=== PATIENT | female | born 1980 | race American Indian/Alaskan Native ===

== ENCOUNTER 2018-07-22 03:43 | Inpatient (IN) | payer BC, MEDICAID ==
[2018-07-22] MEDS ORDERED: PITOCin/NS 20 UNIT/1000ML DRIP 20,000 MILLIUNITS/1,000 ML BAG IV ONE (05:14)
[2018-07-22] MEDS ORDERED: LACTATED RINGERS 1,000 ML IV ONE (06:13)
--- NOTE | 2018-07-22 08:51 | History and Physical Report ---
History of Present Illness Date of examination: 07/22/18 Date of admission: 07/22/18 03:45 Chief complaint: SROM @ 1946 History of present illness: Pt is a 38yo BF EDC 08/07/18; EGA 37 5/7 weeks presents to L&D complaining of leaking fluid since last night followed by irregular contractions. She received care at [facility] since 12 weeks and co-managed by [facility] for uterine fibroids (16.3 x 17.7 x 15.85cm). records are available and GBS is Negative Past History Past Medical History: thyroid disease Past Surgical History: other (Thyroidectomy) [employer] SUR[employer]YOR History: fibroids Social history: no significant social history, - Obstetrical History Expected Date of Delivery: 08/07/18 Actual Gestation: 37 Week(s) 5 Day(s) Medications and Allergies Allergies Allergy/AdvReac Type Severity Reaction Status Date / Time cheese AdvReac Hives Verified 12/12/14 13:54 Home Medications Medication Instructions Recorded Confirmed Last Taken Type Melatonin/Pyridoxine [Melatonin 3 1 each PO HS 12/12/14 12/12/14 Unknown History mg Tablet] diphenhydrAMINE [Benadryl CAP] 25 mg PO QHS PRN 12/12/14 12/12/14 Unknown History Review of Systems All systems: negative - Vital Signs Vital signs: Vital Signs Pulse BP 110 H 135/75 07/22/18 03:59 07/22/18 03:59 Temp Pulse Resp BP Pulse Ox 97.6 F 98 H 20 115/75 98 07/22/18 05:00 07/22/18 07:55 07/22/18 05:00 07/22/18 07:55 07/22/18 05:00 - Physical Exam Breasts: Positive: deferred Abdomen: Positive: normal appearance, soft Genitourinary (Female): Positive: normal external genitalia Vagina: Positive: normal moisture Extremities: Positive: normal - Obstetrical FHR: category 1 Uterine Contraction Monitor Mode: External Cervical Dilatation: 2.5 (per nurse) Cervical Effacement Percentage: 80 (per nurse) station: -2 Uterine Contraction Pattern: Irregular Uterine Tone Measurement Phase: Contraction Uterine Contraction Intensity: Mild Results Result Diagrams: 07/22/18 09:04 All other labs normal. Assessment and Plan - Patient Problems (1) 37 weeks gestation of Onset Date: 07/22/18 Current Visit: Yes Status: Acute Plan to address problem: A: IUP @ 37 5/7 weeks PPROM GBS Negative Uterine fibroids P: Admit to L&D for expectant vaginal delivery Pitocin augmentation of labor
[2018-07-22] MEDS ORDERED: PITOCin/NS 30 UNIT/500ML 30 UNITS/500 ML BAG IV SCH ×2 (09:00)
[2018-07-22] MEDS ORDERED: XYLOCAINE 2% INFILTRATI NR (09:00)
[2018-07-22] MEDS ORDERED: STADOL IV PRN (09:30)
[2018-07-22] MEDS ORDERED: LACTATED RINGERS 1,000 ML IV SCH (09:30)
[2018-07-22] MEDS ORDERED: BRETHINE SUB-Q PRN (09:30)
[2018-07-22] MEDS ORDERED: ZOFRAN IV PRN ×2 (09:30→19:05)
[2018-07-22] MEDS ORDERED: SUBLIMAZE IV PRN (09:30)
[2018-07-22] MEDS ORDERED: PHENERGAN PO PRN ×2 (09:30→19:05)
[2018-07-22] MEDS ORDERED: BRETHINE IVP PRN (09:30)
[2018-07-22 09:35] LABS: Hematocrit 30.7 % (30.3-42.9); Hemoglobin 10.1 gm/dl (10.1-14.3); Mean Corpuscular HGB Conc 33 % (30-34); Mean Corpuscular Volume 75 fl (79-97); Platelet Count 311 K/mm3 (140-440); Red Blood Count 4.12 M/mm3 (3.65-5.03); Red Cell Distribution Width 18.1 % (13.2-15.2)
[2018-07-22] MEDS ORDERED: MINERAL OIL PO PRN (10:00)
[2018-07-22] MEDS ORDERED: NARCAN 2 MG/2 ML IV PRN (16:32)
[2018-07-22] MEDS ORDERED: SENSORCAINE/DEXTR 0.75-8.25% INFILTRATI ONE (16:36)
[2018-07-22] MEDS ORDERED: fentaNYL-BUPIV 2 MCG/ML-0.125% 200 MCG/100 ML BAG EPIDURAL SCH (17:00)
[2018-07-22] MEDS ORDERED: AMPICILLIN/NS 2 GM/100 ML 2 GM/100 ML BAG IV ONE (17:59)
[2018-07-22] MEDS: PITOCin/NS 20 UNIT/1000ML DRIP 20 UNITS/1,000 ML BAG IV SCH ×2 (18:49→20:05)
--- NOTE | 2018-07-22 19:01 | Procedure Note ---
OB Delivery Note - Delivery Date of Delivery: 07/22/18 Surgeon: RUDDY LEMONS Estimated blood loss: 300cc - Vaginal Delivery presentation: vertex Delivery position: OA Intrapartum events: none Delivery induction: oxytocin Delivery augmentation: rupture of membranes, pitocin Delivery monitor: external FHT, external uterine Route of delivery: Delivery placenta: spontaneous Delivery cord: 3 umbilical vessels Episiotomy: none Delivery laceration: 2nd degree (perineal) Delivery repair: vicryl Anesthesia: epidural Delivery comments: delivered OA and placed on Mom's chest for [id number] bonding and delayed cord clamping, cut by Grandma - Infant A at 1 minute: 8 at 5 minutes: 9 Infant Gender: Male (2893gms)
[2018-07-22] MEDS ORDERED: BENADRYL PO PRN (19:05)
[2018-07-22] MEDS ORDERED: TYLENOL PO PRN (19:05)
[2018-07-22] MEDS ORDERED: DULCOLAX PR PRN (19:05)
[2018-07-22] MEDS ORDERED: TUCKS PAD TP PRN (19:05)
[2018-07-22] MEDS ORDERED: LANSINOH TP PRN (19:05)
[2018-07-22] MEDS ORDERED: MILK OF MAGNESIA PO PRN (19:05)
[2018-07-22] MEDS ORDERED: PHENERGAN PR PRN (19:05)
[2018-07-22] MEDS ORDERED: SODIUM CHLORIDE FLUSH SYRINGE 10 ML IV NR (20:00)
[2018-07-22] MEDS ORDERED: PITOCin/NS 20 UNIT/1000ML DRIP 20 UNITS/1,000 ML BAG IV SCH (20:00)
[2018-07-22] MEDS ORDERED: AMPICILLIN/NS 1 GM/50 ML 1 GM/50 ML BAG IV SCH (22:00)
[2018-07-22] MEDS: FEOSOL PO SCH (22:46)
[2018-07-22] MEDS: COLACE PO SCH (22:46)
[2018-07-23] MEDS: NORCO 5/325 PO PRN ×3 (02:18→17:34)
[2018-07-23] MEDS: IBUPROFEN PO SCH ×3 (02:19→23:51)
[2018-07-23 07:30] LABS: Hematocrit 26.3 % (30.3-42.9); Hemoglobin 8.4 gm/dl (10.1-14.3)
--- NOTE | 2018-07-23 08:42 | Progress Note ---
Assessment and Plan - Patient Problems (1) 37 weeks gestation of Onset Date: 07/22/18 Current Visit: Yes Status: Resolved (2) (normal spontaneous vaginal delivery) Onset Date: 07/23/18 Current Visit: Yes Status: Resolved Plan to address problem: A: S/P - PPD #1 Doing well Asymptomatic anemia - stable Uterine fibroids P: May go home tomorrow. Subjective - Subjective Date of service: 07/23/18 Principal diagnosis: s/p - PPD #1 Interval history: Pt is feeling well without complaints. Bleeding improved. Patient reports: appetite normal, voiding normally, pain well controlled, flatus, ambulating normally, no dizzy ambulation, no nauseated : doing well, nursing well, bottle feeding Objective - Vital Signs Latest vital signs: Vital Signs Temp Pulse Resp BP BP Pulse Ox 07/23/18 03:20 98.4 F 105 H 18 110/65 98 07/23/18 02:19 24 07/23/18 02:18 24 07/23/18 02:15 99.4 F 07/23/18 01:00 98.5 F 99 H 18 137/80 100 07/22/18 22:02 97.6 F 18 121/78 07/22/18 21:55 97.6 F 94 H 18 121/78 97 07/22/18 20:33 98 H 123/67 07/22/18 20:19 102 H 124/67 07/22/18 20:03 102 H 122/58 07/22/18 19:53 98.6 F 99 H 18 138/62 07/22/18 19:49 99 H 138/62 07/22/18 19:01 100 H 127/71 07/22/18 18:32 109 H 132/74 07/22/18 18:02 113 H 131/56 07/22/18 17:31 105 H 121/65 07/22/18 17:00 96 H 135/73 07/22/18 16:53 101 H 147/76 07/22/18 16:50 105 H 136/86 07/22/18 16:31 104 H 157/59 07/22/18 16:02 99 H 124/69 07/22/18 15:31 99 H 134/81 07/22/18 15:30 98.1 F 18 07/22/18 14:31 96 H 139/76 07/22/18 14:02 105 H 126/69 07/22/18 13:33 93 H 121/65 07/22/18 13:30 98.0 F 18 07/22/18 13:01 96 H 135/84 07/22/18 12:31 90 130/81 07/22/18 12:02 98 H 129/84 07/22/18 11:53 94 H 112/63 07/22/18 11:30 97.2 F L 18 07/22/18 11:01 96 H 123/81 07/22/18 10:32 97 H 121/70 07/22/18 10:01 102 H 121/85 07/22/18 09:31 107 H 124/82 07/22/18 09:30 97.8 F 18 07/22/18 08:55 99 H 120/79 Intake and Output 07/22/18 07/23/18 07/23/18 22:59 06:59 14:59 Intake Total 515.877 3796 Output Total 900 Balance 458.333 100 Intake: IV 458.333 Left Wrist 300 PITOCin/NS 20 UNIT/1000ML 158.333 DRIP 20 units In 1,000 ml @ 125 mls/hr IV DIRECT GRETA Rx#:[id number] Intake, Free Water 1000 Output: Urine 900 Void 900 Other: Total, Output Amount 900 # Voids Void 2 Estimated Blood Loss 300 - Exam Breasts: Present: deferred Abdomen: Present: normal appearance, soft, mass Uterus: Present: normal, firm, fundal height above umbilicus Extremities: Present: normal - Labs Labs: Abnormal lab results 07/22/18 07/23/18 Range/Units 09:04 07:02 WBC 11.3 H (4.5-11.0) K/mm3 Hgb 8.4 L (10.1-14.3) gm/dl Hct 26.3 L (30.3-42.9) % MCV 75 L (79-97) fl MCH 25 L (28-32) pg RDW 18.1 H (13.2-15.2) % Laboratory Tests 07/22/18 07/22/18 07/22/18 09:04 09:04 09:04 WBC 11.3 H RBC 4.12 Hgb 10.1 Hct 30.7 MCV 75 L MCH 25 L MCHC 33 RDW 18.1 H Plt Count 311 RPR Nonreactive Blood Type B POSITIVE Antibody Screen Negative 07/23/18 07:02 WBC RBC Hgb 8.4 L Hct 26.3 L MCV MCH MCHC RDW Plt Count RPR Blood Type Antibody Screen
[2018-07-23] MEDS: PRENATAL VITAMIN PO SCH (10:17)
[2018-07-23] MEDS: FEOSOL PO SCH ×2 (10:17→22:05)
[2018-07-23] MEDS: COLACE PO SCH ×2 (10:18→22:05)
--- NOTE | 2018-07-23 11:29 | Discharge Summary ---
Providers - Providers Date of Admission: 07/22/18 03:45 Date of discharge: 07/24/18 Attending physician: RUDDY LEMONS Primary care physician: PRAVEEN TELLES Hospitalization Reason for admission: active labor, rupture of membranes, IUP at term Delivery: Episiotomy: none Laceration: 2nd degree (perineal) Other procedures: none complications: none Discharge diagnosis: IUP at term delivered [place] baby: male Hospital course: Pt is a 38yo BF EDC 08/07/18; EGA 37 5/7 weeks who presented to L&D complaining of leaking fluid followed by irregular contractions. She received care at [facility] since 12 weeks and co-managed by [facility] for uterine fibroids (16.3 x 17.7 x 15.85cm). She had an uncomplicated , male infant, and post course was unremarkable. She was therefore discharged to home on PPD #2 in stable condition. Condition at discharge: Good Disposition: DC-01 TO HOME OR SELFCARE - Discharge Diagnoses (1) 37 weeks gestation of Status: Resolved (2) (normal spontaneous vaginal delivery) Status: Resolved Plan - Discharge Medications Prescriptions: Ferrous Sulfate [Feosol 325 MG tab] 325 mg PO BID #60 tablet Ibuprofen [Motrin 600 MG tab] 600 mg PO Q6H #30 tablet Vit-Fe Fumar-FA [ Vitamin] 1 each PO QDAY #30 tablet - Provider Discharge Summary Activity: routine, no sex for 6 weeks, no heavy lifting 4 weeks, no strenuous exercise Diet: routine Instructions: routine Additional instructions: [] Smoking cessation referral if applicable(refer to patient education folder for contact #) [] Refer to [facility] Booklet Call your doctor immediately for: * Fever > 100.5 * Heavy vaginal bleeding ( >1 pad per hour) * Severe persistent headache * Shortness of breath * Reddened, hot, painful area to leg or breast * Drainage or odor from incision. * Keep incision clean and dry at all times and follow doctor's instructions regarding bathing/showering - Follow up plan Follow up: PRAVEEN TELLES MD [Primary Care Provider] - 6 Weeks RUDDY LEMONS MD [Staff Physician] - 6 Weeks
[2018-07-23] MEDS ORDERED: M-M-R II VACCINE SUB-Q ONE (19:05)
[2018-07-23] MEDS ORDERED: BOOSTRIX IM ONE (19:05)
[2018-07-24] MEDS ORDERED: BOOSTRIX IM ONE (06:00)
[2018-07-24] MEDS: IBUPROFEN PO SCH ×3 (06:23→14:25)
[2018-07-24 09:24] VITALS: BP 117/75
[2018-07-24] MEDS: PRENATAL VITAMIN PO SCH (09:31)
[2018-07-24] MEDS: COLACE PO SCH (09:31)
[2018-07-24] MEDS: FEOSOL PO SCH (09:32)
[2018-07-24] MEDS: NORCO 5/325 PO PRN (17:13)
== END 2018-07-24 20:33 | disposition home or self-care (01) | DRG 775 ==
LOC: TRG 03:43 → LD 03:45 → OB 21:10
PROVIDERS: ADMIT Obstetrics & Gynecology; ATTEND Obstetrics & Gynecology
PROC: 10E0XZZ Delivery of Products of Conception, External Approach (ICD-10-PCS; principal; 2018-07-22)
PROC: 0KQM0ZZ Repair Perineum Muscle, Open Approach (ICD-10-PCS; 2018-07-22)
PROC: 3E033VJ Introduction of Other Hormone into Peripheral Vein, Percutaneous Approach (ICD-10-PCS; 2018-07-22)
PROC: 3E0R3BZ Introduction of Anesthetic Agent into Spinal Canal, Percutaneous Approach (ICD-10-PCS; 2018-07-22)
PROC: 00HU33Z Insertion of Infusion Device into Spinal Canal, Percutaneous Approach (ICD-10-PCS; 2018-07-22)
PROC: 3E0234Z Introduction of Serum, Toxoid and Vaccine into Muscle, Percutaneous Approach (ICD-10-PCS; 2018-07-23)
DX: O42.92 Full-term premature rupture of membranes, unspecified as to length of time between rupture and onset of labor (principal); O99.02 Anemia complicating childbirth; D64.9 Anemia, unspecified; O34.13 Maternal care for benign tumor of corpus uteri, third trimester; D25.9 Leiomyoma of uterus, unspecified; E89.0 Postprocedural hypothyroidism; O70.1 Second degree perineal laceration during delivery; Z3A.37 37 weeks gestation of pregnancy; Z37.0 Single live birth; Z23 Encounter for immunization
CPT/HCPCS: 36415; 85014; 85018; 85027; 86592; 86850; 86900; 86901; 96360; 96361; G0378; A6250; J2405; J2590; J3010; J7120

== ENCOUNTER 2018-07-30 12:56 | Emergency (ER) | payer MEDICAID ==
--- NOTE | 2018-07-30 13:19 | Emergency Department Report ---
Blank Doc - Documentation Documentation: 38 yo female 8 day Post at july 22 presents with diffuse abdominal pain with sob and ankle swelling labs orderd
[2018-07-30 13:43] LABS: Basophils # (Auto) 0.1 K/mm3 (0.0-0.1); Basophils % (Auto) 0.8 % (0.0-1.8); Eosinophils # (Auto) 0.3 K/mm3 (0.0-0.4); Eosinophils % (Auto) 2.8 % (0.0-4.3); Hematocrit 25.4 % (30.3-42.9); Hemoglobin 8.2 gm/dl (10.1-14.3); Lymphocytes # (Auto) 1.4 K/mm3 (1.2-5.4); Lymphocytes % (Auto) 11.9 % (13.4-35.0); Mean Corpuscular HGB Conc 32 % (30-34); Mean Corpuscular Volume 74 fl (79-97); Monocytes # (Auto) 0.7 K/mm3 (0.0-0.8); Monocytes % (Auto) 5.9 % (0.0-7.3); Platelet Count 684 K/mm3 (140-440); Red Blood Count 3.42 M/mm3 (3.65-5.03); Red Cell Distribution Width 17.7 % (13.2-15.2)
[2018-07-30 13:57] LABS: INR 1.05 (0.87-1.13)
[2018-07-30 14:03] LABS: BUN/Creatinine Ratio 9; Blood Urea Nitrogen 7 mg/dL (7-17); Calcium 8.5 mg/dL (8.4-10.2); Hemolysis Index 0
--- NOTE | 2018-07-30 15:18 | Emergency Department Report ---
<FAVIO SNYDER - Last Filed: 07/30/18 16:50> ED Abdominal Pain HPI - General Chief Complaint: Abdominal Pain Stated Complaint: /SWELLING/ABD Time Seen by Provider: 07/30/18 13:12 Source: patient Mode of arrival: Wheelchair Limitations: No Limitations - History of Present Illness Initial Comments: Mrs. England is [address] Dr[address] Faisal Schwartz. Over the last several days she's had right lower quadrant pain left lower quadrant pain bilateral leg swelling and cough. Mild shortness of breath. According to electronic medical record history of thyroid disease. She is currently breast-feeding. MD Complaint: abdominal pain -: days(s) (few) Location: LLQ, RLQ Severity: moderate Quality: cramping, aching Consistency: constant Worsens With: movement Associated Symptoms: other (shortness of breath) - Related Data Home Medications Medication Instructions Recorded Confirmed Last Taken Melatonin/Pyridoxine [Melatonin 3 1 each PO HS 12/12/14 12/12/14 Unknown mg Tablet] diphenhydrAMINE [Benadryl CAP] 25 mg PO QHS PRN 12/12/14 12/12/14 Unknown Previous Rx's Medication Instructions Recorded Last Taken Type Ferrous Sulfate [Feosol 325 MG tab] 325 mg PO BID #60 tablet 07/23/18 Unknown Rx Ibuprofen [Motrin 600 MG tab] 600 mg PO Q6H #30 tablet 07/23/18 Unknown Rx Vit-Fe Fumar-FA [ 1 each PO QDAY #30 tablet 07/23/18 Unknown Rx Vitamin] Cephalexin [Keflex] 500 mg PO BID 5 Days #10 capsule 07/30/18 Unknown Rx Allergies Allergy/AdvReac Type Severity Reaction Status Date / Time cheese AdvReac Hives Verified 07/30/18 13:01 ED Review of Systems Comment: All other systems reviewed and negative Constitutional: denies: fever, malaise Respiratory: shortness of breath Gastrointestinal: abdominal pain ED Past Medical Hx - Past Medical History Previous Medical History?: Yes Hx Hypertension: No Hx Congestive Heart Failure: No Hx Diabetes: No Hx Deep Vein Thrombosis: No Hx Renal Disease: No Hx Sickle Cell Disease: No Hx Seizures: No Hx Psychiatric Treatment: No Hx Asthma: No Hx COPD: No Hx HIV: No Additional medical history: thyroid - Surgical History Past Surgical History?: Yes Additional Surgical History: thyroidectomy - Social History Smoking Status: Never Smoker Substance Use Type: None - Medications Home Medications: Home Medications Medication Instructions Recorded Confirmed Last Taken Type Melatonin/Pyridoxine [Melatonin 3 1 each PO HS 12/12/14 12/12/14 Unknown History mg Tablet] diphenhydrAMINE [Benadryl CAP] 25 mg PO QHS PRN 12/12/14 12/12/14 Unknown Histo ry Ferrous Sulfate [Feosol 325 MG tab] 325 mg PO BID #60 tablet 07/23/18 Unknown Rx Ibuprofen [Motrin 600 MG tab] 600 mg PO Q6H #30 tablet 07/23/18 Unknown Rx Vit-Fe Fumar-FA [ 1 each PO QDAY #30 tablet 07/23/18 Unknown Rx Vitamin] Cephalexin [Keflex] 500 mg PO BID 5 Days #10 capsule 07/30/18 Unknown Rx ED Physical Exam - General Limitations: No Limitations General appearance: alert, in no apparent distress - Head Head exam: Present: atraumatic, normocephalic - Eye Eye exam: Present: normal appearance - ENT ENT exam: Present: mucous membranes moist - Neck Neck exam: Present: normal inspection - Respiratory Respiratory exam: Present: normal lung sounds bilaterally. Absent: respiratory distress - Cardiovascular Cardiovascular Exam: Present: regular rate, normal rhythm. Absent: systolic murmur, diastolic murmur, rubs, gallop - GI/Abdominal GI/Abdominal exam: Present: soft, distended (gravid), tenderness, guarding, normal bowel sounds. Absent: rebound - Extremities Exam Extremities exam: Present: normal inspection - Back Exam Back exam: Present: normal inspection - Neurological Exam Neurological exam: Present: alert, oriented X3 - Psychiatric Psychiatric exam: Present: normal affect, normal mood - Skin Skin exam: Present: warm, dry, intact, normal color. Absent: rash ED Medical Decision Making - Lab Data Result diagrams: 07/30/18 13:32 07/30/18 13:32 Laboratory Results - last 24 hr 07/30/18 07/30/18 07/30/18 13:32 13:32 13:32 WBC 11.4 H RBC 3.42 L Hgb 8.2 L Hct 25.4 L MCV 74 L MCH 24 L MCHC 32 RDW 17.7 H Plt Count 684 H Lymph % (Auto) 11.9 L [place] % (Auto) 5.9 Eos % (Auto) 2.8 Baso % (Auto) 0.8 Lymph # 1.4 [place] # 0.7 Eos # 0.3 Baso # 0.1 Seg Neutrophils % 78.6 H Seg Neutrophils # 8.9 H PT 14.3 INR 1.05 D-Dimer 4456.34 H Sodium 138 Potassium 3.8 Chloride 101.0 Carbon Dioxide 25 Anion Gap 16 BUN 7 Creatinine 0.8 Estimated GFR > 60 BUN/Creatinine Ratio 9 Glucose 87 Calcium 8.5 NT-Pro-B Natriuret Pep HCG, Quant 07/30/18 07/30/18 13:32 14:01 WBC RBC Hgb Hct MCV MCH MCHC RDW Plt Count Lymph % (Auto) [place] % (Auto) Eos % (Auto) Baso % (Auto) Lymph # [place] # Eos # Baso # Seg Neutrophils % Seg Neutrophils # PT INR D-Dimer Sodium Potassium Chloride Carbon Dioxide Anion Gap BUN Creatinine Estimated GFR BUN/Creatinine Ratio Glucose Calcium NT-Pro-B Natriuret Pep 63.09 HCG, Quant 62.69 H - Medical Decision Making Ms. England is a 38 yo female who is 8 days s/p vaginal delivery. Abdominal pain persistent, with reported ankle swelling and dyspnea Considerations preeclampsia, will rule out PE and acute inflammatory process with CT angiogram and CT abdomen/pelvis. CBC chemistry within normal limits including hepatic panel. DBP 93 mm Hg I discussed findings with Dr. James. She did not suspect preeclampsia considering normal systolic blood pressure normal hepatic panel and absence of epigastric pain or headache. She recommended discharge home with follow-up tomorrow if workup is normal. Repeat blood pressure 120/83. She has follow-up arranged for next week. ED Disposition Clinical Impression: pain, UTI (urinary tract infection) Disposition: DC-01 TO HOME OR SELFCARE Is pt being admited?: No Does the pt Need Aspirin: No Condition: Stable Instructions: Urinary Tract Infection in Women (ED) Prescriptions: Cephalexin [Keflex] 500 mg PO BID 5 Days #10 capsule Referrals: DINORA VENTURA MD [Primary Care Provider] - YANI <RUBÉN GONZALEZ - Last Filed: 07/30/18 21:45> ED Review of Systems ROS: Stated complaint: /SWELLING/ABD Other details as noted in HPI ED Course Vital Signs 07/30/18 07/30/18 13:11 16:23 Temperature 98.5 F Pulse Rate 109 H 82 Respiratory 16 16 Rate Blood Pressure 130/93 Blood Pressure 123/82 [Left] O2 Sat by Pulse 100 99 Oximetry ED Medical Decision Making - Lab Data Result diagrams: 07/30/18 13:32 07/30/18 13:32 - Medical Decision Making Received sign-out from Dr Snyder. Labs unremarkable. CT Abd/ Pelvis consistent w/ recent and uterine fibroid, no other findings of concern. CTA Chest limited due to motion, however, no large PE present. Patient tells me her abdominal pain is at times so strong that she feels it takes her breath away. States she is not currently having any shortness of breath. Pt does not appear to be in any distress. O2 sats have been normal during ED stay. No significant lower extremity edema present. Pt does have evidence of UTI and she is , so will give prescription for Keflex. Return precautions given. Recommended urgent follow-up w/ OB. Critical care attestation.: If time is entered above; I have spent that time in minutes in the direct care of this critically ill patient, excluding procedure time. ED Disposition Is pt being admited?: No
[2018-07-30 16:06] LABS: Alanine Aminotransferase 12 units/L (7-56); Albumin 3.3 g/dL (3.9-5)
[2018-07-30 16:13] LABS: Bilirubin,Direct < 0.2 mg/dL (0-0.2)
[2018-07-30 16:23] VITALS: BP 123/82
[2018-07-30 16:52] LABS: Bilirubin,Urine NEG (Negative); Blood,Urine MOD (Negative); Color,Urine Yellow (Yellow); Mucus,Urine FEW /HPF; Protein,Urine <15 mg/dL mg/dL (Negative); Urobilinogen,Urine < 2.0 mg/dL (<2.0)
--- NOTE | 2018-07-30 18:01 | Cat Scan Report ---
PROCEDURE: CT ABDOMEN PELVIS W CON TECHNIQUE: Following administration of IV contrast axial helical imaging was performed through the a bdomen and pelvis with sagittal and coronal reformatted images obtained. HISTORY: RLQ abd pain COMPARISONS: CT angiogram chest also performed today FINDINGS: The lung bases are without infiltrate, pneumothorax or pleural fluid collection. The heart appears to be normal size. The liver, spleen, pancreas, kidneys and adrenal glands are unremarkable. The bowel is normal caliber. The appendix is normal caliber and contains air. There is a small amount of free fluid in the abdomen and pelvis. The Hounsfield units are slightly hi gher than would be expected for a simple transudate. There is no evidence of pneumoperitoneum or free fluid. The abdominal aorta is normal caliber. There is no definite evidence of pathologic intra-abdominal adenopathy by CT size criteria. The urinary bladder is moderately distended and unremarkable in appearance. The uterus is markedly enlarged and heterogeneous in appearance. There is a large (approximately 20 cm x 12 cm by the 12 cm) heterogeneous mass with irregular enhanci ng margins that is contiguous with the anterior superior aspect of the uterus. This extends superiorl y to the level of the inferior margin the liver and gallbladder and results in significant mass effec t on the bowel. The anterior aspect of the mass is not clearly separable from portions of the anterio r abdominal wall. The bony structures are unremarkable. IMPRESSION: 1. Enlarged heterogeneous uterus with a large exophytic heterogeneous mass. This is associated with a small amount of free fluid in the abdomen and pelvis with Hounsfield units that are higher than woul d be expected for a simple transudate. MRI may be helpful for further characterization of the above findings. 2. Otherwise unremarkable study. This document is electronically signed by Rocio Singh MD., July 30 2018 05:59:27 PM ET
--- NOTE | 2018-07-30 18:14 | Cat Scan Report ---
PROCEDURE: CT ANGIO CHEST TECHNIQUE: Following administration of IV contrast axial helical imaging was performed through the a bdomen and pelvis with sagittal and coronal reformatted images obtained. HISTORY: shortness of breath COMPARISONS: CT abdomen and pelvis also performed today FINDINGS: Visualization of fine detail in portions of the chest is somewhat limited by motion artifact. There is no evidence of infiltrate, pneumothorax or pleural fluid collection. The trachea and bronchi are patent. The heart appears to be enlarged. The thoracic aorta is normal caliber. There is no evidence of intrathoracic adenopathy. No filling defects are demonstrated within the central pulmonary arteries to suggest the presence of central pulmonary artery emboli. However, segmental pulmonary artery emboli could be missed or overca lled due to motion artifact. The bony structures are unremarkable. The visualized portion of the upper abdomen is notable for partial visualization of the previously de scribed mass that is contiguous with the uterus described on the CT abdomen and pelvis also performed today. IMPRESSION: 1. Study somewhat degraded by motion artifact. 2. No evidence of an acute intrathoracic process. 3. No evidence of central pulmonary artery emboli. However, segmental pulmonary artery emboli could b e missed or overcalled due to motion artifact. 4. The heart appears to be enlarged. This document is electronically signed by Rocio Singh MD., July 30 2018 06:13:06 PM ET
== END 2018-07-30 19:09 | disposition home or self-care (01) ==
LOC: ED 12:56
DX: N39.0 Urinary tract infection, site not specified (principal); G89.18 Other acute postprocedural pain; Z79.899 Other long term (current) drug therapy; Z91.011 Allergy to milk products
CPT/HCPCS: 36415; 71275; 74177; 80048; 80076; 81001; 83880; 84702; 85025; 85379; 85610; 99284; Q9967